=== PATIENT | female | born 1950 | race Caucasian/White ===

== ENCOUNTER 2016-11-11 06:40 | Inpatient (IN) ==
--- NOTE | 2016-11-10 21:02 | Discharge Summary ---
<Fernanda Villafana - Last Filed: 11/11/16 18:02> Date of Encounter: 11/11/16 - Discharge Diagnosis (1) Rotator cuff tear arthropathy of right shoulder Priority: Primary Status: Acute (2) History of breast cancer Priority: Secondary Status: Chronic (3) History of DVT (deep vein thrombosis) Priority: Secondary Status: Chronic (4) Hypertension Priority: Secondary Status: Chronic Qualifiers: Hypertension type: essential hypertension Qualified Code(s): I10 - Essential (primary) hypertension (5) Hypothyroid Priority: Secondary Status: Chronic Qualifiers: Hypothyroidism type: unspecified Qualified Code(s): E03.9 - Hypothyroidism , unspecified - Discharge Medications Prescriptions: Aspirin Enteric Coated [Aspirin EC] 325 mg PO DAILY #21 tablet. Home Medications: Acetaminophen [Tylenol] 650 mg PO Q8H PRN 03/06/15 [History] Levothyroxine [Synthroid] 140 mcg PO DAILY 03/06/15 [History] Multivit with Iron-Minerals [Flintstones Complete] 1 tab PO HS 03/06/15 [History ] Alendronate Sodium [Fosamax] 70 mg PO DELGADILLO 05/21/16 [History] Cholecalciferol (D-3) [Vitamin D] 2,000 unit PO HS 05/21/16 [History] Letrozole [Femara] 2.5 mg PO DAILY #90 tablet 07/25/16 [Rx] OxyCODONE/APAP 5/325 [Percocet 5/325 MG] 1 - 2 each PO Q6HR PRN #40 tablet 11/10 [Rx] Aspirin Enteric Coated [Aspirin EC] 325 mg PO DAILY #21 tablet. 11/11/16 [Rx] Famotidine/Ca Carb/Mag Hydrox [Pepcid Complete Tablet Chew] 1 tab PO DAILY PRN 11/11/16 [History] Pseudoephedrine HCl [Wal-Phed D] 120 mg PO DAILY 11/11/16 [History] Vitamin E Acid Succinate [Vitamin E] 400 unit PO HS 11/11/16 [History] Allergies/Adverse Reactions: Allergies adhesive tape Adverse Reaction (Verified 11/11/16 07:03) Redness of Skin clindamycin Adverse Reaction (Verified 11/11/16 07:03) Itching sulfamethoxazole [From Bactrim] Adverse Reaction (Verified 11/11/16 07:03) Itching trimethoprim [From Bactrim] Adverse Reaction (Verified 11/11/16 07:03) Itching Primary care physician: Chandana Davis MD - Patient Status Disposition: Home, Self-Care Condition: Good - Discharge Instructions Instructions: Aspirin (By mouth) Follow Up With: Chandana Davis MD [Primary Care Provider] - Additional Instructions: Discharge Instructions: Total Shoulder Please call [facility] ([phone]), your Primary Care Physician, or report to the Emergency Room if you have any of the following symptoms: Nausea, vomiting, fever greater that 101.5, swelling, chest pain, shortness of breath, increased pain/redness/drainage/odor for your incision site, numbness/ tingling, or any other concerning symptoms. ACTIVITY: Always keep your arm in the sling. Do not raise your arm away from your body. Do not use your arm to help with getting in or out of bed. No weight bearing permitted. Only perform those exercises given to you by your therapist. MEDICATIONS: Upon discharge resume your home medications. Take all the medications as prescribed. Take a stool softener if taking narcotic pain medications. Stool softeners are only effective if you drink enough fluids. Drink 6-8 glass of water or fluids a day, unless this is not allowed for another health problem. Despite using stool softeners, if you haven't had a bowel movement in 3 days, please switch to a gentle laxative. Gentle laxatives are sold over the counter. You should have a bowel movement within 24 hours, if not call the office. You will be discharged from the hospital with a prescription for pain medication. You are encouraged to decrease the use of narcotic pain medication as tolerated. Should you require a refill, please call the office. [facility] prescribes narcotic pain medication for only 4-6 weeks after surgery. If you require pain medication beyond this time period, you may be referred to your Primary Care Physician or to the Pain Clinic for further evaluation. Plan ahead for refills on pain medication as many narcotics either need to be picked up at the office or mailed. It is best to call 48-72 hours in advance of needing a prescription refill so you don't run out of medication. To help control the post-operative pain, you may take NSAIDs (Aleve,Advil, Motrin, ibuprofen, naprosyn) or Tylenol as prescribed on the bottle in addition to the pain medication. WOUND CARE: Leave the dressing on for 7 days. Do not get dressing wet. You may change the dressing if it becomes saturated greater than 50%. Wash your hands with antibacterial soap, rinse and dry prior to any wound care. If you have brendan the visiting nurse or rehab facility can remove the stapes 10-14 days after surgery and place steri-strips across the wound. Leave the steri- strips in place until they fall off on their won. You may let water from the shower run on top of the steri-stirips. If you do not have a visiting nurse or rehab facility, you will need to return to the office at 10-14 days for the brendan to be removed. FOLLOW-UP: Please follow up with your surgeon in the orthopedic clinic, as scheduled - Hospital Course Hospital course: Ms. Dempsey is a 66 year old female - Time Spent with Patient Total time spent providing and/or coordinating discharge services: <Adalberto Patel - Last Filed: 11/12/16 06:24> Date of Encounter: 11/12/16 Time of Encounter: 06:24 - Discharge Diagnosis (1) Rotator cuff tear arthropathy of right shoulder Priority: Primary Status: Acute (2) History of breast cancer Priority: Secondary Status: Chronic (3) History of DVT (deep vein thrombosis) Priority: Secondary Status: Chronic (4) Hyperparathyroidism Priority: Secondary Status: Chronic (5) Osteoporosis Priority: Secondary Status: Chronic Qualifiers: Osteoporosis type: unspecified Presence of current pathological fracture: unspecified Qualified Code(s): M81.0 - Age-related osteoporosis without current pathological fracture (6) Hypertension Status: Chronic Qualifiers: Hypertension type: essential hypertension Qualified Code(s): I10 - Essential (primary) hypertension (7) Hypothyroid Status: Chronic Qualifiers: Hypothyroidism type: unspecified Qualified Code(s): E03.9 - Hypothyroidism , unspecified Primary care physician: Chandana Davis MD - Patient Status Functional capacity at discharge: independent ambulation Overall status at discharge: patient is progressing back to baseline - Hospital Course Hospital course: Ms. Dempsey is a 66 year old female The patient had an uneventful postoperative course. They received antibiotics and physical therapy and were discharged in stable condition. There will follow -up in the office in 2 weeks. - Time Spent with Patient Total time spent providing and/or coordinating discharge services:
--- NOTE | 2016-11-11 06:38 | History & Physical Report ---
Date of Encounter: 11/11/16 Time of Encounter: 06:37 24 Hour HP Update - Instructions Instructions: If the History and Physical is less than 30 days old and was completed prior to A.M. admission and or procedure and has NOT been updated on calendar day of procedure please complete this update prior to performing procedure. - Update Patient reports changes in Medical Condition: No Changes in examination, assessment, or condition: No Changes in Medication: No Preop tests/diagnostics Reviewed: Yes Surgery Remains Indicated: Yes Consent for Planned Operative Procedure(s) Verified: Yes - Pre-Operative Checklist Preoperative Checklist Indicated: No Prophylactic Antibiotic Ordered: Yes Is VTE Prophylaxis Indicated?: Yes
[2016-11-11] MEDS ORDERED: Ondansetron 4 MG/2 ML VIAL ONE ×2 (07:12→09:00)
[2016-11-11] MEDS ORDERED: Lidocaine -MPF 2% 2 ML VIAL ONE (07:12)
[2016-11-11] MEDS ORDERED: *HR* FentaNYL (PF) 100 MCG/2 ML VIAL ONE (07:12)
[2016-11-11] MEDS ORDERED: *HR* Midazolam HCl 2 MG/2 ML VIAL ONE (07:12)
[2016-11-11] MEDS ORDERED: *HR* Succinylcholine 200 MG/10 ML VIAL IVP ONE (07:12)
[2016-11-11] MEDS ORDERED: *HR* Propofol 200 MG/20 ML VIAL IVP ONE (07:12)
--- NOTE | 2016-11-11 07:16 | Anesthesia Evaluation PreOp ---
Date of Encounter: 11/11/16 Time of Encounter: 07:10 - Past History Planned Operation: Rt Total Shoulder Replacement Cardiac History: Denies any Significant Hx Pulmonary History: Denies Any Significant HX BUSINESS AREA MANAGER History: Denies Any Significant HX Other Medical History: Thyroid Anesthesia History: No Prior Anesthetic Complications : No Alcohol Use: none Drug use: none Medications and Allergies Acetaminophen [Tylenol] 650 mg PO Q8H PRN 03/06/15 [History] Levothyroxine [Synthroid] 140 mcg PO DAILY 03/06/15 [History] Multivit with Iron-Minerals [Flintstones Complete] 1 tab PO HS 03/06/15 [History ] Alendronate Sodium [Fosamax] 70 mg PO DELGADILLO 05/21/16 [History] Cholecalciferol (D-3) [Vitamin D] 2,000 unit PO HS 05/21/16 [History] Letrozole [Femara] 2.5 mg PO DAILY #90 tablet 07/25/16 [Rx] Enoxaparin [Lovenox] 30 mg SQ Q12HR #20 syr 11/10/16 [Rx] OxyCODONE/APAP 5/325 [Percocet 5/325 MG] 1 - 2 each PO Q6HR PRN #40 tablet 11/10 [Rx] Famotidine/Ca Carb/Mag Hydrox [Pepcid Complete Tablet Chew] 1 tab PO DAILY PRN 11/11/16 [History] Pseudoephedrine HCl [Wal-Phed D] 120 mg PO DAILY 11/11/16 [History] Vitamin E Acid Succinate [Vitamin E] 400 unit PO HS 11/11/16 [History] Allergies adhesive tape Adverse Reaction (Verified 11/11/16 07:03) Redness of Skin clindamycin Adverse Reaction (Verified 11/11/16 07:03) Itching sulfamethoxazole [From Bactrim] Adverse Reaction (Verified 11/11/16 07:03) Itching trimethoprim [From Bactrim] Adverse Reaction (Verified 11/11/16 07:03) Itching - Meds/Allergy Pre-op Review Medications Reviewed: Yes Allergies Reviewed: Yes Beta Blockers on Current Med List: No Anesthesia Results - Labs Laboratory Tests 01/12/16 11/05/16 11/05/16 11:31 14:48 14:48 Hgb 12.8 POC Hgb 13.0 Plt Count 307 Sodium 140 Potassium 4.0 BUN 17 Creatinine 0.77 - Imaging EKG: report reviewed (SR with PVC) Anesthesia Exam O2 Sat Height 1.73 m Height 1.73 m Weight 78.925 kg Weight 78.925 kg O2 Sat by Pulse Oximetry 98 Vital Signs Temp Pulse Resp BP Pulse Ox 97.8 F 84 16 130/94 98 11/11/16 07:01 11/11/16 07:01 11/11/16 07:01 11/11/16 07:01 11/11/16 07:01 Height: 5'8 Weight: 174 lbs NPO (# of Hours): MN Pain Scale: 0 - HEENT Pupil (Motor): Pupils equal, EOMI Mallampati: II Teeth: Normal Oral Opening: Greater than 3 - BUSINESS AREA MANAGER LOC: Oriented BUSINESS AREA MANAGER Motor: Normal RUE, Normal LUE, Normal RLE, Normal LLE, Normal Face BUSINESS AREA MANAGER Sensory: Normal: RUE, LUE, RLE, LLE, Face - Cardiac Rhythm: Regular Murmur: None JVD: No Carotid Bruit: No - Pulmonary Breath Sounds: bilateral Clear Respiratory Effort: Symmetrical Anesthesia Assess/Plan ASA Score: 2 Modified Seth Scale for Level of Consciousness: Cooperative, oriented, and tranquil Anesthetic Plan: General, Regional Monitoring Plan: Standard Monitors Recovery Plan: PACU (Discussed GA and RA, agrees to proceed)
[2016-11-11] MEDS ORDERED: Famotidine 20 MG/2 ML VIAL IVP ONE (07:19)
[2016-11-11] MEDS ORDERED: *HR* HYDROmorphone (PF) 1 MG/ML SYRINGE IVP PRN ×2 (07:29→10:31)
[2016-11-11] MEDS ORDERED: Ondansetron 4 MG/2 ML VIAL IVP ONE (07:29)
[2016-11-11] MEDS ORDERED: *HR* Promethazine 25 MG/ML VIAL IVP PRN (07:29)
[2016-11-11] MEDS ORDERED: Ringers Solution, Lactated 1,000 ML IVC SCH ×2 (07:30→10:31)
[2016-11-11] MEDS ORDERED: CeFAZolin Pre 2,000 MG/100 ML 2,000 MG/100 ML BAG IVPB ONE (07:37)
[2016-11-11] MEDS ORDERED: Lidocaine -MPF 1% 2 ML VIAL ID ONE (07:37)
[2016-11-11] MEDS ORDERED: ROPIVACAINE HCL/PF 0.5% 30 ML VIAL ONE (08:06)
[2016-11-11] MEDS ORDERED: Bupivacaine/Clonidine Syringe 1 EACH SYRINGE ONE ×2 (08:09→08:17)
[2016-11-11] MEDS ORDERED: Tetracaine/PF 20 MG/2 ML AMPUL SPINA ONE (08:16)
--- NOTE | 2016-11-11 08:50 | Anesthesia Procedures ---
Date of Encounter: 11/11/16 Time of Encounter: 08:18 Procedures: Anesthesia - Nerve Block Procedure Date: 11/11/16 Time: 08:18 Checklist: Correct Patient Identifier Correct side: Right Blood Thinner: No Monitor Applied: EKG, BP, Pulse Oximetry Supplemental Oxygen via Nasal Cannula (L/min): 2 Sedation: Versed (mg): 2 Sedation: Fentanyl (mcg): 100 Indication: Post Op Analgesia Pre-op Neuro Deficits: No Block Type: Supraclavicular, Other (supervicial cervical plexus/ ICB) Catheter placed: No Sterile Technique: Yes Ultrasound used: Yes Anatomy identified: Yes Visual spread of Local: Yes Neuro Stimulation: No Blood on Needle Aspiration: No Smooth Injection of Local: Yes Pain with Injection of Local: No Prep: Chlorhexadine Needle: 22 x 50 mm Stimuplex Local: 0.25% Bupivicaine w/Clonidine 20 mcg/cc (20 cc), Ropivacaine (3) Volume (cc): see above Number of Attempts: 1 Complications: None/effective block (30 ml) Vitals: VSS
[2016-11-11] MEDS ORDERED: Dexamethasone 4 MG/ML VIAL ONE (09:00)
--- NOTE | 2016-11-11 09:16 | Orthopedic Operative Note ---
Date of procedure: 11/11/16 Pre-op diagnosis: Right shoulder cuff tear arthropathy Post-op diagnosis: same Procedure: Procedure: Right Total Shoulder Replacment Reverse, Estimated blood loss: 100 cc Hardware:Arthrex medium glenoid baseplate, 2 4.5 screws. 1 6.5 screw, 39 lateral glenosphere, 8 humeral stem, poly insert 6 metal 3 Karely Exam Under anesthesia: Full motion of instability Procedural Notes: Irreparable tear supraspinatus tendon, grade 4 arthritic changes humeral head Operative procedure: The patient was brought to the operating room and placed on the operating room table. After general anesthesia was administered the operative shoulder was examined. Findings were noted. The patient was placed in the modified beachchair position. All pressure points were padded appropriately. And the head was stabilized in the neutral position. The operative extremity was prepped and draped in the sterile surgical fashion. The patient received IV antibiotics prior to skin incision. A standard deltopectoral approach was made to the operative shoulder. Incision was made to the skin and subcutaneous tissue,hemo stasis was obtained with Bovie cautery. Using careful blunt dissection the cephalic vein was identified and mobilized medially. The deltopectoral interval was developed and the clavipectoral fascia was incised. The subscap was released off the lesser tuberosity and tagged with #2 FiberWire suture. The humerus was dislocated patient noted to have irreparable tear supraspinatus tendon, and the humeral cut was made along the anatomic neck. Patient noted to have grade 4 arthritic changes humeral head. Anterior and posterior Bankart retractors were placed to expose the glenoid. The glenoid guide was seated and the centering hole was made. It was reamed with the appropriate reamer. The medium was seated and secured with (2) 4.5 screws and one 6.5 screw. The baseplate was irrigated and dried and the 39 lateral Glenosphere was seated and secured with the Fenton taper. The Fenton taper was tested and found to be secure the humerus was redislocated and prepared with the diaphyseal reamers, followed by a broaching process up to the appropriate size 8 in the patient's anatomic version. The metaphyseal reamer was then utilized. Trial reduction found the shoulder to be relocatable. Trial components were removed subscap was irreparable. The 8 stem was impacted in place in the patient's anatomic version. Trial reduction found the shoulder to be relocatable and stable with the appropriate 6 metal 3 Karely Trial component was removed and the real implants was seated and secured the shoulder was reduced. The shoulder had excellent motion and excellent stability and no evidence of dislocation. The deep tissue was irrigated with pulse irrigation. The deltopectoral interval was closed with a running #1 PDS suture, subcutaneous tissue was irrigated and closed with 0 PDS suture, the skin was closed with Dermabond. The patient was placed in a sterile dressing, abduction brace and extubated. The patient was then transferred to the recovery room in stable condition. Anesthesia: FLORINA Surgeon: Adalberto Patel Information Technology Coordinator: Fernanda Villafana Condition: stable Disposition: PACU
--- NOTE | 2016-11-11 09:58 | Anesthesia Evaluation Post Op ---
Date of Encounter: 11/11/16 Time of Encounter: 10:05 - Vital Signs Vital Signs: Vital Signs/O2 Sat/Glucose, Most Current Temp Pulse Resp BP Pulse Ox 11/11/16 09:52 71 15 124/82 97 11/11/16 09:42 85 13 122/87 98 11/11/16 09:32 97.2 F L 96 14 116/83 98 11/11/16 08:18 70 16 141/93 100 11/11/16 07:01 97.8 F 84 16 130/94 98 - Lungs Lungs: Clear Ascult./Percussion - Airway Airway: Non-obstructed - Cardiovascular Regular Rate - Mental Status Mental Status: Alert & Oriented, Answers Appropriately - Pain Pain Scale: 0 - Nausea Vomiting Nausea Vomiting: Not Present - Hydration Hydration: Ice chips - Discharge PostOp Status: Transfer Patient to floor
[2016-11-11 10:30] LABS: Hematocrit 35.9 % (35.3-44.9); Hemoglobin 11.5 g/dL (11.5-15.4)
[2016-11-11] MEDS ORDERED: *HR* OxyCODONE Immed Rel 5 MG TABLET PO PRN ×2 (10:31)
[2016-11-11] MEDS ORDERED: Letrozole 2.5 MG TABLET PO SCH (10:31)
[2016-11-11] MEDS ORDERED: Naloxone 0.4 MG/ML INJ IVP PRN (10:31)
[2016-11-11] MEDS ORDERED: Ondansetron 4 MG/2 ML VIAL IVP PRN (10:31)
[2016-11-11] MEDS ORDERED: PSEUDOEPHEDRINE HCL 120 MG PO SCH (10:31)
[2016-11-11] MEDS ORDERED: Temazepam 15 MG CAPSULE PO PRN (10:31)
[2016-11-11] MEDS ORDERED: MOM Conc 10 ML UD.LIQ PO PRN (10:31)
[2016-11-11] MEDS ORDERED: Famotidine 20 MG TABLET PO PRN (10:31)
[2016-11-11] MEDS ORDERED: Sennosides 8.6 MG TABLET PO PRN (10:31)
[2016-11-11] MEDS ORDERED: Acetaminophen 325 MG TABLET PO PRN (10:31)
[2016-11-11] MEDS ORDERED: ceFAZolin 2,000 MG in D5% in Water 100 ML IVPB SCH (15:00)
[2016-11-11] MEDS ORDERED: *HR* Enoxaparin 30 MG/0.3 ML SYRINGE SQ SCH ×2 (18:00)
[2016-11-11] MEDS ORDERED: Multivit/Ca/Min/Fe/FA 1 TAB TABLET PO SCH (21:00)
[2016-11-11] MEDS ORDERED: Cholecalciferol (D-3) 1,000 UNIT TABLET PO SCH (21:00)
[2016-11-12 10:58] VITALS: BP 121/79
[2016-11-17] MEDS ORDERED: NON-FORMULARY MEDICATION 1 EACH EACH (Alendronate Sodium [Fosamax] 70 MG) PO SCH (08:02)
== END 2016-11-11 18:00 | disposition home or self-care (01) | DRG 483 ==
LOC: SAMDAY 06:40 → 3NENU 10:28
PROVIDERS: ADMIT Orthopaedic Surgery; ATTEND Orthopaedic Surgery